=== PATIENT | male | born 1965 | race Hispanic/Latino ===

== ENCOUNTER → 2018-07-25 | Outpatient (CLI) | payer OTHER ==
--- NOTE | 2018-07-25 10:08 | Diagnostic Imaging Report ---
EXAM: US ABDOMEN COMPLETE INDICATION: Elevated LFTs. COMPARISON: None TECHNIQUE: Transverse and longitudinal wall scale and color doppler sonographic images of the abdomen were obtained. FINDINGS: LIVER 18.3 cm in the right midclavicular line. Increased echogenicity of the liver with normal contour, no masses. SPLEEN 12.4 cm in maximum diameter. Normal echogenicity, no masses. GALLBLADDER No gallbladder wall thickening, distension, stone, or pericholecystic fluid. Negative reported sonographic Guillermo's sign. BILE DUCTS No intra nor extra-hepatic biliary dilation. Common bile duct measures 0.5 cm PANCREAS: Visualized portions are normal. RIGHT KIDNEY: 13.1 cm Echogenicity: Normal Collecting System: No hydronephrosis Stones: None Cyst/Mass: None LEFT KIDNEY: 12.9 cm Echogenicity: Normal Collecting System: No hydronephrosis Stones: None Cyst/Mass: None VESSELS: Aorta: Visualized portions are within normal size limits Inferior Vena Cava: Visualized portions are normal Main Portal Vein: 1.0 cm, normal size with hepatopetal flow. FREE FLUID: None IMPRESSION: Hepatomegaly with hepatic steatosis. No sonographic evidence of cholelithiasis or cholecystitis. Signed by: Dr. Rodrigo Hutchins MD on 07/25/2018 10:05 AM
== END ==
LOC: US 09:02
PROVIDERS: ATTEND Internal Medicine
DX: R74.8 Abnormal levels of other serum enzymes (principal)
CPT/HCPCS: 76700